=== PATIENT | male | born 1990 | race Caucasian/White ===

== ENCOUNTER 2024-05-09 20:11 | Emergency (ER) | payer SELFPAY ==
[~2024-05-09] VITALS: Ht 170.2 cm; Wt 78.0 kg
[2024-05-09 21:27] VITALS: O2SAT 100
[2024-05-09] MEDS ORDERED: AMOX1TAB16 MT (21:55)
[2024-05-09] MEDS ORDERED: IBUP-2029 MT (21:55)
[2024-05-09] MEDS ORDERED: BO1 TP (21:55)
[2024-05-09] MEDS: IBUPROFEN 600MG TABLET PO ONE (22:14)
[2024-05-09] MEDS: BACITRACIN ZINC OINT UDPKT TOP ONE (22:15)
[2024-05-09] MEDS: TETANUS, DIPHTHERIA, PERTUSSIS VAC/PF 0.5ML (>10YR OLD) IM ONE (22:15)
[2024-05-09 22:49] VITALS: BP 139/80; PULSE 81; RESP 16; TEMP 36.78072; O2SAT 100
== END 2024-05-09 22:52 | disposition home or self-care (01) ==
LOC: ER 20:11
DX: S61.452A Open bite of left hand, initial encounter (principal); W54.0XXA Bitten by dog, initial encounter; Y93.K1 Activity, walking an animal; Y92.89 Other specified places as the place of occurrence of the external cause; Y99.8 Other external cause status
CPT/HCPCS: 90715; 12001; 90471; 99283; Z7610